=== PATIENT | female | born 1960 | race Caucasian/White ===

== ENCOUNTER 2017-10-18 07:43 | Day surgery (SDC) | payer OTHER ==
[2017-10-14 11:36] VITALS: BMI 21.4
[2017-10-18 08:13] LABS: BASO # 0.02 K/mm3 (0.0-2.0); BASO % 0.3 % (0.0-3.0); EOS # 0.2 (0.0-0.7); EOS % 2.5 % (1.5-5.0); GRAN # 2.64 (1.4-6.5); GRAN % 38.7 % (50.0-68.0); LYMPH # 3.6 (1.2-3.4); LYMPH % 53.2 % (22.0-35.0); MEAN CELL VOLUME 89.6 fl (80.0-105.0); MEAN CORPUSCULAR HGB CONC 34.6 g/dl (31.0-37.0); MEAN PLATELET VOLUME 8.2 fl (7.0-11.0); MONO # 0.4 (0.1-0.6); MONO % 5.3 % (1.0-6.0); RBC 4.52 10^6/uL (3.5-6.1); RED CELL DISTRIBUTION WIDTH 12.7 % (11.5-14.5); WHITE BLOOD COUNT 6.8 10^3/ul (4.5-11.0)
[2017-10-18 08:18] LABS: BLOOD UREA NITROGEN 12 mg/dL (7-21); CALCIUM 9.8 mg/dL (8.4-10.5); GFR AFRICAN-AMERICAN > 60; GFR NON-AFRICAN AMERICAN > 60; INR 0.94; PARTIAL THROMBOPLASTIN TIME 36.2 Seconds (25.1-36.5); PROTHROMBIN TIME 10.8 SECONDS (9.4-12.5)
[2017-10-18] MEDS ORDERED: Lidocaine PF 2% (5 ml) Inj (For Cardiac Arrhy) ONE (08:45)
[2017-10-18] MEDS ORDERED: Nitroglycerin 50mg in D5W 50 MG/250 ML BOTTLE IV ONE (08:45)
[2017-10-18] MEDS ORDERED: Iohexol 350 MG/100 ML VIAL ONE (08:45)
[2017-10-18] MEDS ORDERED: Midazolam 2 MG/2 ML VIAL ONE ×4 (09:07→09:53)
[2017-10-18] MEDS ORDERED: Phenylephrine 10 mg/ml Inj ONE (09:12)
[2017-10-18] MEDS ORDERED: Eptifibatide 20 mg/10mL Inj IVP ONE (09:26)
[2017-10-18] MEDS ORDERED: Sodium Chloride 0.9% 1,000 ML IV SCH (10:15)
--- NOTE | 2017-10-18 12:17 | CARDCATH ---
Copied To: Behzad Palacios MD Attending MD: Behzad Palacios MD PROCEDURE DATE: 10/18/2017 HISTORY: The patient is a 57-year-old woman with multiple cardiac risk factors including a strong family history for CAD with two siblings with myocardial infarctions and angioplasty and bypass surgery including a mother with an acute coronary syndrome who presents with progressive angina. Stress test revealed marked S-T changes and chest pain although the nuclear part was normal. Because of this, a cardiac catheterization was recommended. PROCEDURE: Left heart catheterization with coronary arteriography and left ventriculogram followed by PTCA and stent of multiple lesions in the RCA. The right femoral artery was cannulated with 6-Dominican sheath. There were no complications. I performed moderate sedation, which include the presence of an independent trained observer that assisted in monitoring the patient's level of consciousness and physiologic status. After administration of Versed and fentanyl, my intra-service time was 45 minutes. The findings on catheterization revealed a left ventricle that contracted normally. Estimated ejection fraction of 60%. The patient had a right dominant circulation. The RCA was diffusely diseased with a 95% stenoses in the proximal portion with a long multiple critical lesions in the mid to distal RCA including 80% and 90% lesions. The left main artery was unremarkable. The circumflex artery revealed diffuse calcification throughout its course and diffuse atherosclerosis with a 60% stenoses in the midportion. The LAD and diagonal vessels revealed diffuse atherosclerosis and calcification. There is an eccentric 80% stenosis in the midportion. The patient was started on intravenous Angiomax and was given two doses of intravenous Integrilin. The guiding catheter was placed in the ostium of the RCA. An 0.014 ATW wire was used to cross the multiple critical lesions. A 2.0 balloon was utilized to predilate the lesions. This was followed by implantation of a 2.5 stent in the [id number]-fu-[id number] RCA followed by implantation of a 3.0 x 12 mm drug-eluting stents. Postdilatation in the mid and distal area was performed with a 2.75 balloon. The proximal stent was postdilated with 3.5 stent. During the course of manipulation, the patient became bradycardiac, which required atropine as well as multiple doses of IV hydralazine for marked accelerated hypertension. Repeat coronary arteriography revealed an excellent result with no residual stenosis and PERFECTO III flow. Angio-Seal was used to close the femoral artery site. The patient tolerated the procedure well. In summary, the procedure was successful PTCA and stent of multiple lesions in the RCA with drug-eluting stents. Cardiac catheterization reveals: Triple vessel CAD. Normal LV function. Given these findings, the patient will need to remain on aspirin for at least a year and undergo a strict cardiac risk reduction program. The aspirin will need to be on indefinitely. We will bring her back in one to two weeks for PTCA and stent of the LAD. Behzad Palacios MD
--- NOTE | 2017-10-18 14:32 | HP ---
Copied To: David Tapia DO Attending MD: David Tapia DO HISTORY OF PRESENT ILLNESS: I was called down to the environmental laboratory technician to admit this patient for Dr. Behzad Palacios. She is a nice young 57-year-old female who just is status post a cardiac cath and stent placement. She had chest pain, shortness of breath, palpitations with activity and was taken to cath and had a stent placement. PAST MEDICAL HISTORY: Anemia with pregnancies, history of ulcers. She had laparoscopic surgery and x2. SOCIAL HISTORY: No smoking. No alcohol. No drugs. FAMILY HISTORY: There is cardiac disease in the family. One sibling had bypass surgery. They also have chest pain in the family. She does wear glasses to read. ALLERGIES: SHE HAS NO KNOWN DRUG ALLERGIES. MEDICATIONS: She is currently on aspirin, Lipitor, Plavix and IV fluids. REVIEW OF SYSTEMS: She has on review of systems, no acute vision changes or hearing changes, some shortness of breath. There is chest pain with activity. No abdominal pain. There is some nauseousness and vomiting status post cath. No extremity issues. PHYSICAL EXAMINATION: VITAL SIGNS: She has a 98.3 temperature, 66 pulse, 18 respiratory rate, 100% O2 sat on room air. HEENT: Head: Atraumatic, normocephalic. Throat is moist. NECK: Supple. HEART: Regular rate. LUNGS: Decreased breath sounds, but clear. ABDOMEN: Soft, nontender. Positive bowel sounds. EXTREMITIES: No edema. SKIN: For the most part is intact. NEUROLOGIC: She is alert and oriented x3. She is little bit uncomfortable status post cardiac cath. She has to lay flat for 6 hours. She understands this. She is here for cardiac cath, CAD, stent placement. She will be on medications as stated earlier and we will check her labs tomorrow. David Tapia, DO : 10/18/2017 11:44:14
--- NOTE | 2017-10-18 21:02 | CARD ---
APPROVED REPORT Date of service: 10/18/2017 EKG Measurement Heart [id number] <Conclusion> Normal sinus rhythm Nonspecific T wave abnormality Abnormal ECG
[2017-10-19 00:30] VITALS: RESP 22
[2017-10-19 06:16] VITALS: BP 137/64; TEMP 98.3; O2SAT 99
[2017-10-19 07:08] LABS: BASO # 0.02 K/mm3 (0.0-2.0); BASO % 0.2 % (0.0-3.0); EOS # 0.1 (0.0-0.7); EOS % 0.6 % (1.5-5.0); GRAN # 6.42 (1.4-6.5); GRAN % 64.9 % (50.0-68.0); HEMOGLOBIN 12.3 g/dL (12.0-16.0); LYMPH # 2.9 (1.2-3.4); LYMPH % 29.1 % (22.0-35.0); MEAN CELL VOLUME 88.1 fl (80.0-105.0); MEAN CORPUSCULAR HEMOGLOBIN 30.5 pg (25.0-35.0); MEAN CORPUSCULAR HGB CONC 34.6 g/dl (31.0-37.0); MEAN PLATELET VOLUME 8.6 fl (7.0-11.0); MONO # 0.5 (0.1-0.6); MONO % 5.2 % (1.0-6.0); RBC 4.03 10^6/uL (3.5-6.1); WHITE BLOOD COUNT 9.9 10^3/ul (4.5-11.0)
[2017-10-19 07:43] LABS: ALB/GLOB RATIO 1.3 (1.1-1.8); ALBUMIN 4.1 g/dL (3.0-4.8); ALT/SGPT 26 U/L (7-56); AST/SGOT 34 U/L (14-36); BLOOD UREA NITROGEN 7 mg/dL (7-21); CALCIUM 9.4 mg/dL (8.4-10.5); GFR AFRICAN-AMERICAN > 60; GFR NON-AFRICAN AMERICAN > 60
[2017-10-19 12:00] VITALS: PULSE 53
--- NOTE | 2017-10-19 12:22 | CARD ---
APPROVED REPORT Date of service: 10/19/2017 EKG Measurement Heart [id number] <Conclusion> Sinus bradycardia Otherwise normal ECG
--- NOTE | 2017-10-19 12:44 | DS ---
Copied To: David Tapia DO Attending MD: David Tapia DO HISTORY OF PRESENT ILLNESS: She is status post cardiac cath with stent placement with Dr. Palacios yesterday for CAD. She is on Plavix and aspirin. She will continue that. PHYSICAL EXAMINATION: VITAL SIGNS: She has a 98.3 temp, 52 pulse, 137/64 blood pressure, 22 respiratory rate, 99% O2 sat on room air. GENERAL: She is doing much better. No chest pain or shortness breath. No abdominal pain. She is eating and she is walking. She is in good spirits. HEENT: Her head is atraumatic, normocephalic. HEART: Regular rate. LUNGS: Decreased breath sounds, but clear to auscultation. ABDOMEN: Soft. EXTREMITIES: No edema. LABORATORY DATA: She has a 9.9 white count, 12.3 hemoglobin, 35.5 hematocrit with a 248 platelets. She has a 142 sodium, potassium 4, BUN is 7, creatinine 0.6, GFR is greater than 60, sugar is 116, calcium is 9.4, total bili is 0.5, AST is 34, ALT is 26, alk phos 83, total protein 7.3. ASSESSMENT AND PLAN: She did very well. She was seen by Dr. Palacios. She had a cardiac catheterization with stent placement. Hopefully, she will do very well. We will see her in the outpatient. David Tapia DO
--- NOTE | 2017-10-19 15:43 | PN ---
Copied To: Behzad Palacios MD Attending MD: Behzad Palacios MD DATE: 10/19/2017 CARDIOLOGY FOLLOWUP SUBJECTIVE: The patient is without shortness of breath, without chest pain. She is ambulating without symptoms. PHYSICAL EXAMINATION: VITAL SIGNS: Stable. NECK: Negative JVD. LUNGS: Without rales. HEART: Reveals S1, S2. EXTREMITIES: Without edema. The groin site is stable. LABORATORY DATA: Laboratories are unremarkable. IMPRESSION: 1. Stable post percutaneous transluminal coronary angioplasty and stent of multiple lesions in the right coronary artery. 2. Triple vessel coronary artery disease. 3. Strong family history for coronary artery disease. 4. Hypercholesterolemia. PLAN: Given these findings, the patient is stable for discharge. Behzad Palacios MD
== END 2017-10-19 12:13 | disposition home or self-care (01) ==
LOC: CATH 07:43 → 2RSO 10:21 → CATH 10-19 12:13
PROVIDERS: ATTEND Internal Medicine Cardiovascular Disease
DX: I25.10 Atherosclerotic heart disease of native coronary artery without angina pectoris (principal); I97.3 Postprocedural hypertension; Y83.8 Other surgical procedures as the cause of abnormal reaction of the patient, or of later complication, without mention of misadventure at the time of the procedure; E78.00 Pure hypercholesterolemia, unspecified; Z82.49 Family history of ischemic heart disease and other diseases of the circulatory system; Z79.02 Long term (current) use of antithrombotics/antiplatelets; Z79.82 Long term (current) use of aspirin
CPT/HCPCS: 36415 ×2; 80048; 80053; 85025 ×2; 85027; 85610; 85730; 86850; 86900; 93005 ×2; 93458; 99152; 99153; C1725 ×3; C1760; C1769 ×2; C1874 ×3; C1887; C2629; C9600; J0360; J0583; J1327; J1644; J2250; J2405; J3010; J7030; Q9967 ×2

== ENCOUNTER 2017-11-08 11:12 | Day surgery (SDC) | payer OTHER ==
[2017-11-03 08:50] VITALS: BMI 20.5
[2017-11-08] MEDS ORDERED: Iodixanol 320 MG/ML 200 ML BOTTLE IV ONE (11:42)
[2017-11-08] MEDS ORDERED: Iodixanol 320 MG/ML 100 ML BOTTLE IV ONE (11:42)
[2017-11-08] MEDS ORDERED: Iohexol 350mgl/ml 50 ML ONE (11:42)
[2017-11-08] MEDS ORDERED: Nitroglycerin 50mg in D5W 50 MG/250 ML BOTTLE IV ONE (11:42)
[2017-11-08 12:13] LABS: BASO # 0.02 K/mm3 (0.0-2.0); BASO % 0.2 % (0.0-3.0); EOS # 0.2 (0.0-0.7); EOS % 1.9 % (1.5-5.0); GRAN # 4.32 (1.4-6.5); GRAN % 51.1 % (50.0-68.0); LYMPH # 3.4 (1.2-3.4); LYMPH % 40.1 % (22.0-35.0); MEAN CELL VOLUME 88.4 fl (80.0-105.0); MEAN CORPUSCULAR HEMOGLOBIN 30.7 pg (25.0-35.0); MEAN CORPUSCULAR HGB CONC 34.8 g/dl (31.0-37.0); MEAN PLATELET VOLUME 8.5 fl (7.0-11.0); MONO # 0.6 (0.1-0.6); MONO % 6.7 % (1.0-6.0); RBC 4.23 10^6/uL (3.5-6.1); RED CELL DISTRIBUTION WIDTH 12.6 % (11.5-14.5); WHITE BLOOD COUNT 8.5 10^3/ul (4.5-11.0)
[2017-11-08] MEDS ORDERED: Midazolam 2 MG/2 ML VIAL ONE ×3 (12:17→12:29)
[2017-11-08 12:22] LABS: INR 0.99; PARTIAL THROMBOPLASTIN TIME 35.3 Seconds (25.1-36.5); PROTHROMBIN TIME 11.4 SECONDS (9.4-12.5)
[2017-11-08 12:25] LABS: BLOOD UREA NITROGEN 10 mg/dL (7-21); CALCIUM 9.7 mg/dL (8.4-10.5); GFR NON-AFRICAN AMERICAN > 60; HDL CHOLESTEROL 53 mg/dL (29-60)
[2017-11-08] MEDS ORDERED: Morphine 4 mg/ml ISec ONE (12:31)
[2017-11-08 12:35] LABS: LDL CHOLESTEROL 85 mg/dL (0-129)
[2017-11-08] MEDS ORDERED: Sodium Chloride 0.9% 1,000 ML IV SCH (13:00)
--- NOTE | 2017-11-08 13:48 | CARDCATH ---
Copied To: Behzad Palacios MD Attending MD: Behzad Palacios MD PROCEDURE DATE: 11/08/2017 HISTORY: The patient is a 57-year-old woman who presents with unstable angina. She has documented multivessel CAD with diffuse calcification and coronary artery disease. She underwent PTCA and stent of an RCA earlier this month. She presents for PTCA of the LAD. The left femoral artery was cannulated with a 6-Uzbek sheath. There were no complications. I performed moderate sedation, which included the presence of an independent trained observer that assisted in monitoring the patient's level of consciousness and physiologic status. After administration of Versed and fentanyl, my intra service time was 30 minutes. The findings on catheterization revealed a right dominant circulation. The RCA revealed diffuse atherosclerosis with a patent stent in the proximal portion. There is 50-60% stenosis in the mid and distal portions of the RCA. The left main artery revealed diffuse atherosclerosis without critical lesions. The LAD in its midportion revealed a 90% stenoses as an acute curve with a 50-60% stenoses in the mid and distal portion of the LAD. The patient was started on intravenous Angiomax on the fluoroscopic guide. The guiding catheter was placed in the ostium of the left main artery. An 0.014 ATW wire was used to cross the lesion. An AngioSculpt balloon, 2.5 utilized to predilate the lesion. This was followed by placing a 2.25 x x 12 mm drug-eluting stent in the lesion at 8 atmospheres of pressure. Repeat coronary arteriography revealed an excellent result with no residual stenosis and PERFECTO III flow. The patient received two dose of 200 of IC nitroglycerin, which relieved the spasm that was caused by the wire. The patient tolerated the procedure well. Angio-Seal was used to close the femoral artery site. The patient tolerated the procedure well. In summary, the procedure was successful PTCA and stent of a 90% stenosis in the mid LAD with a drug-eluting stent. Cardiac catheterization reveals diffuse atherosclerosis in all the coronary trees with multiple 50-60% lesions in multiple coronary trees. The proximal stent in the RCA was patent. The 90% mid LAD stenoses was stented with a drug-eluting stent. Given these findings, the patient will need to remain on aspirin indefinitely and Plavix for least a year and undergo a strict cardiac risk reduction program. Behzad Palacios MD [facility] # [id number]
--- NOTE | 2017-11-08 21:25 | CARD ---
APPROVED REPORT Date of service: 11/08/2017 EKG Measurement Heart [id number] [place] [id number] <Conclusion> Normal sinus rhythm Normal ECG
--- NOTE | 2017-11-08 21:32 | CARD ---
APPROVED REPORT Date of service: 11/08/2017 EKG Measurement Heart [id number] [id number] <Conclusion> Normal sinus rhythm Normal ECG
--- NOTE | 2017-11-09 05:49 | HP ---
Copied To: David Tapia DO Attending MD: David Tapia DO HISTORY OF PRESENT ILLNESS: Ed done quite well from sending her for a thallium stress test and then she had her first cath. I think she had 3 stents placed. She came back today for a fourth stent. She is resting comfortably in bed, although right now she is nauseous and I added Zofran to the mix. She is a 57-year-old female with a very bad family history of coronary artery disease, was just cath and stented for the fourth time with Dr. Palacios. She has chest pain, shortness of breath, palpitations. PAST MEDICAL HISTORY: She has a past medical history of anemia, pregnancies, history of ulcers. She had laparoscopic surgery and a x2. FAMILY HISTORY: She has a very bad family history of heart disease, one sibling had bypass. They also had chest pain in the family. She does wear glasses to read. A lot of her family members have in the 50s from coronary artery disease. SOCIAL HISTORY: Nonsmoker, no alcohol, no drugs. ALLERGIES: SHE HAS NO KNOWN DRUG ALLERGIES. MEDICATIONS: She is on Crestor, Plavix, baby aspirin. REVIEW OF SYSTEMS: She is having shortness of breath, chest pain, palpitations. No acute vision or hearing changes. No sore throat. There is shortness of breath, there is chest pain. There is no abdominal pain. Although right now she has nauseousness and vomiting here status post cath. I believe the last time she had it, no extremity issues, no skin issues. PHYSICAL EXAMINATION: VITAL SIGNS: She has a 98.3 temperature, 66 pulse, 108/64 blood pressure, 18 respiratory rate, and 100% O2 sat on room air. HEENT: Head is atraumatic, normocephalic. Throat is moist. Extraocular muscles are intact. Pupils equal and reactive to light and accommodation. NECK: Supple. LUNGS: Decreased breath sounds, but clear to auscultation. No wheezes. No rhonchi. No rales. HEART: Regular rate. ABDOMEN: Soft, nontender. Positive bowel sounds. No guarding, no rebound, no CVA tenderness. EXTREMITIES: No edema. She is able to move all four extremities well. SKIN: For the most part is intact. No rashes or ulcers appreciated. NEUROLOGIC: She is alert and oriented x3. Cranial nerves II through XII grossly intact. LABORATORY DATA: She had some tests done. She has 143 sodium, potassium 4.4, BUN 10, creatinine 0.6, GFR is greater than 60, sugar is 104, calcium is 9.7, triglycerides 164, cholesterol is 195, LDL is 85, HDL is 53. White count is 8.5, hemoglobin 13, hematocrit 37.4, platelets are 249. INR is 0.99. IMPRESSION AND PLAN: She has a cardiac cath with placement of a stent that is a fourth stent in a few weeks. She will be resting flat for 6 hours. She could eat and hopefully tomorrow will do well and discharge her tomorrow. I will discuss this with Dr. Palacios. She is here for coronary artery disease, chest pain, shortness of breath, palpitations and nauseousness. David Tapia DO
[2017-11-09 06:55] VITALS: BP 134/69; PULSE 63; RESP 19; TEMP 98.3; O2SAT 98
[2017-11-09 07:11] LABS: BASO # 0.02 K/mm3 (0.0-2.0); BASO % 0.2 % (0.0-3.0); EOS # 0.1 (0.0-0.7); EOS % 1.1 % (1.5-5.0); GRAN # 4.84 (1.4-6.5); GRAN % 53.7 % (50.0-68.0); HEMOGLOBIN 11.3 g/dL (12.0-16.0); LYMPH # 3.6 (1.2-3.4); LYMPH % 40.1 % (22.0-35.0); MEAN CELL VOLUME 88.7 fl (80.0-105.0); MEAN CORPUSCULAR HEMOGLOBIN 29.8 pg (25.0-35.0); MEAN CORPUSCULAR HGB CONC 33.6 g/dl (31.0-37.0); MEAN PLATELET VOLUME 8.6 fl (7.0-11.0); MONO # 0.4 (0.1-0.6); MONO % 4.9 % (1.0-6.0); RBC 3.79 10^6/uL (3.5-6.1); RED CELL DISTRIBUTION WIDTH 12.9 % (11.5-14.5)
[2017-11-09 07:27] LABS: ALB/GLOB RATIO 1.2 (1.1-1.8); ALBUMIN 3.8 g/dL (3.0-4.8); ALT/SGPT 40 U/L (7-56); AST/SGOT 32 U/L (14-36); BLOOD UREA NITROGEN 7 mg/dL (7-21); CALCIUM 8.7 mg/dL (8.4-10.5); GFR NON-AFRICAN AMERICAN > 60
--- NOTE | 2017-11-09 08:18 | PN ---
Copied To: Behzad Palacios MD Attending MD: Behzad Palacios MD DATE: 11/09/2017 CARDIOLOGY FOLLOWUP SUBJECTIVE: The patient is chest pain free. PHYSICAL EXAMINATION: VITAL SIGNS: Blood pressure is 134/69, heart rate is in the 60s. NECK: Negative JVD. LUNGS: Without rales. HEART: Reveals S1, S2. EXTREMITIES: Without edema. The left groin site is stable. No hematoma noted. LABORATORY DATA: Hemoglobin is 11.3. Chemistries: BUN and creatinine unremarkable. Potassium 3.8. IMPRESSION: 1. Stable post percutaneous transluminal coronary angioplasty and stent of a left anterior descending. 2. Multivessel coronary artery disease. 3. Hypercholesterolemia. 4. Exertional dyspnea, which is now resolved. PLAN: Given these findings, the patient is stable for discharge. The patient will go home on aspirin and Plavix with Plavix for at least a year. A follow-up appointment has been given to the patient. Behzad Palacios MD
--- NOTE | 2017-11-09 08:36 | DS ---
Copied To: David Tapia DO Attending MD: David Tapia DO I saw her resting comfortably in bed. She is in good spirits. No chest pain or shortness of breath. She is comfortable. She has questions about ambulation now that she had a fourth stent placed. I told her after Dr. Palacios comes to see her, she can ask him those questions, but she should be able to go back to walking. She should follow with me next week in the office. She will take the medications that she is on here. OBJECTIVE: VITAL SIGNS: Temperature 98.3, 63 pulse, 134/69 blood pressure, 19 respiratory rate, 98% O2 sat on room air. HEENT: Head is atraumatic, normocephalic. HEART: Regular rate. LUNGS: Clear to auscultation. ABDOMEN: Soft. EXTREMITIES: No edema. She is going to go home on Ecotrin, Lipitor, Plavix. She will need the Zofran once understand. DATA: She has a 9 white count, 11.3 hemoglobin, 33.6 hematocrit with 230 platelets. She has a 139 sodium, potassium 3.8, BUN 7, creatinine 0.6. GFR is greater than 60, sugar is 107, calcium is 8.7, total bili is 0.5, AST is 32, ALT is 40, alk phos 79. Total protein 6.9, albumin is 3.8. Triglycerides 164, cholesterol 195. We will see if we can discharge her today, status post cardiac cath and a fourth stent was placed. She will be seen on the outpatient with Dr. Tapia and Dr. Palacios. I will see her in the office next week. David Tapia DO MTDD
== END 2017-11-09 08:53 | disposition home or self-care (01) ==
LOC: CATH 11:12 → 2RSO 13:21 → CATH 11-09 08:53
PROVIDERS: ATTEND Internal Medicine Cardiovascular Disease
DX: I25.110 Atherosclerotic heart disease of native coronary artery with unstable angina pectoris (principal); Z82.49 Family history of ischemic heart disease and other diseases of the circulatory system; Z95.5 Presence of coronary angioplasty implant and graft; E78.00 Pure hypercholesterolemia, unspecified; R06.00 Dyspnea, unspecified; D64.9 Anemia, unspecified
CPT/HCPCS: 36415; 80048; 80061; 85025; 85610; 85730; 86850; 86900; 93005; 93454; 99152; 99153; C1725; C1760; C1769 ×2; C1874; C1887; C2629; C9600; J0360; J0583; J1644; J2250; J2270; J2405; J3010; J7030; Q9966; Q9967 ×2